=== PATIENT | male | born 1970 | race Caucasian/White ===

== ENCOUNTER 2018-10-08 12:10 | Emergency (ER) | payer BC, OTHER ==
--- NOTE | 2018-10-08 12:24 | PDOC ---
History of Present Illness - General Chief Complaint: Respiratory Stated Complaint: fever,chills,cough History Source: Patient, Family Exam Limitations: No Limitations - History of Present Illness Initial Comments: 10/08/18 12:39 This is a 48 year old male with a history of depression, who present with productive cough with yellow sputum, fevers, chills, weakness, malaise for the past week. He was seen at the urgent care, given azithromycin, he is on day 4. States his symptoms are not improving. At urgent care, white count was 5, as per , vitals stable. Patient denies travel, sick contacts, n, v, d, aspiration, abdominal pain or urinary complaints. Has had to call off work due to illness. PMHx: depression, mood disorder?, on lithium at home and seroquel PSHx: one Social hx: lives with , works as [employer] [place]?, Past History - Past Medical History Allergies/Adverse Reactions: Allergies Allergy/AdvReac Type Severity Reaction Status Date / Time No Known Allergies Allergy Verified 10/08/18 12:12 Home Medications: Ambulatory Orders Lamotrigine [Lamictal] 50 mg PO DAILY 02/25/15 [place] Carbonate [Eskalith -] 1,350 mg PO DAILY 02/25/15 Sertraline HCl [Zoloft] 100 mg PO BID 02/25/15 Psychiatric Problems: Yes (OCD, DEPRESSION, BIPOLAR) - Suicide/Smoking/Psychosocial Hx Smoking History: Never smoked Hx Alcohol Use: Yes (RED WINE OCCASSIONALLY) Drug/Substance Use Hx: No Substance Use Type: None Hx Substance Use Treatment: No Review of Systems - Review of Systems Able to Perform ROS?: Yes Is the patient limited Spanish proficient: No Constitutional: Yes: Malaise, Night Sweats, Weakness. No: Chills, Diaphoresis, Fever HEENTM: No: Eye Pain, Blurred Vision, Tearing, Double Vision Respiratory: No: Cough, Shortness of Breath, Wheezing Cardiac (ROS): No: Chest Pain, Edema, Irregular Heart Rate ABD/GI: Yes: Poor Appetite, Poor Fluid Intake. No: Abdominal Distended, Nausea , Vomiting, Abdominal cramping : No: Burning, Dysuria Musculoskeletal: No: Back Pain, Joint Pain, Muscle Weakness Integumentary: No: Dryness, Erythema, Flushing Neurological: No: Headache, Numbness, Paresthesia Endocrine: No: Unexplained Weight Gain *Physical Exam - Physical Exam General Appearance: Yes: Appropriately Dressed HEENT: positive: Normal ENT Inspection, Normal Voice, Pharynx Normal, Nasal Congestion. negative: Rhinorrhea, Sinus Tenderness, TM Erythema Neck: negative: Lymphadenopathy (L) Respiratory/Chest: positive: Decreased Breath Sounds, Crackles (bilateral crackles at bases) Cardiovascular: positive: Regular Rhythm, Regular Rate, S1, S2 Gastrointestinal/Abdominal: positive: Normal Bowel Sounds. negative: Tender Lymphatic: negative: Adenopathy, Tenderness Musculoskeletal: positive: Normal Inspection Extremity: positive: Normal Range of Motion Neurologic: positive: Fully Oriented, Normal Mood/Affect ED Treatment Course - LABORATORY CBC & Chemistry Diagram: 10/08/18 14:45 10/08/18 14:50 Medical Decision Making - Medical Decision Making 10/08/18 14:22 This is a 48 year old male with who presents with cough, fever, chills, weakness , malaise for the past week , on day 4 of azithromycin. Will work up with ancillary studies to r/o pna. CXR with bilateral infiltrates R>L. RML consolidation. #PNA: -will work up for sepsis secondary to PNA -cbc, bmp, lactic acid, blood culture, urina for pNA antigens -pending labs; dannie goyal 10/08/18 15:28 -white count wnl -will d/c home with instructions to continue azithromycin for the full course -add robitussin -dc home with instructions to stay hydrated; rest, supportive care *DC/Admit/Observation/Transfer Diagnosis at time of Disposition: Pneumonia Qualifiers: Pneumonia type: due to unspecified organism - Discharge Dispostion Condition at time of disposition: Stable Decision to Admit order: No - Referrals - Patient Instructions Printed Discharge Instructions: DI for Pneumonia -- Adult Additional Instructions: Mr. Medina, you have been diagnosed with pneumonia, continue to take your prescribed azithromycin for full course. If you experience any worsening of symptoms, including continued high fevers, shortness of breath, chest pain, please return to the emergency room. Please follow up with your primary care physician. - Post Discharge Activity
[2018-10-08 12:25] VITALS: BP 119/80; PULSE 73; TEMP 99.1; BMI 23.6
--- NOTE | 2018-10-08 12:27 | PDOC ---
Attending Attestation - Resident Resident Name: Silvia Gudino - ED Attending Attestation I have performed the following: I have examined & evaluated the patient, The case was reviewed & discussed with the resident, I agree w/resident's findings & plan, Exceptions are as noted - HPI HPI: 10/08/18 16:36 Fever and cough beginning approximately 2 weeks ago. Prescribed Tamiflu and azithromycin, therapy now continuing on day 4. Fever has resolved, but productive cough continues. No shortness of breath or chest pain. - Physicial Exam PE: 10/08/18 16:37 Physical exam: Afebrile. Vital signs stable HEENT clear Neck supple without bruit mass or nodes Chest clear to P&A bilaterally, no wheezes rales or rhonchi appreciated. Full breath sounds CV without murmur rub or gallop Abdomen benign Skin clear, no rash, adequate turgor and wet mucous membranes Extremities no CCE - Medical Decision Making 10/08/18 16:37 Assessment: Chest x-ray today reveals a right middle lobe infiltrate. White blood count normal. No significant lab abnormalities. Oxygen saturation remains in the 94-98 range on room air. Plan: Continue treatment for community-acquired pneumonia. Finish Tamiflu and Zithromax. Close follow-up with reevaluation immediately if there is high fever , shortness of breath, chest pain, or any other breathing difficulties. Home from work, rest, and observation by family. 10/08/18 16:39
[2018-10-08] MEDS ORDERED: guaiFENesin/D-METHORPHAN HB 10 ML UNIT-DOSE CUPS PO ONE (14:05)
[2018-10-08] MEDS ORDERED: guaiFENesin/D-METHORPHAN HB 10 ML UNIT-DOSE CUPS ONE (14:21)
[2018-10-08 15:09] LABS: BASO % 0.5 % (0-2.0); EOS % 3.3 % (0-4.5); HEMATOCRIT 36.2 % (35.4-49); HEMOGLOBIN 12.5 GM/dl (11.7-16.9); LYMPH % 11.3 % (8-40); MCH 30.7 pg (25.7-33.7); MCHC 34.5 g/dl (32.0-35.9); MEAN CELL VOLUME 88.9 fl (80-96); MEAN PLT VOLUME 7.5 fl (7.5-11.1); MONO % 7.3 % (3.8-10.2); NEUT % 77.6 % (42.8-82.8); PLATELET COUNT 435 K/MM3 (134-434); RBC 4.07 M/mm3 (4.00-5.60); RDW 11.6 % (11.9-15.9); WHITE BLOOD COUNT 5.8 K/mm3 (4.0-10.8)
[2018-10-08 15:15] LABS: BLOOD UREA NITROGEN 16 mg/dl (7-18); CREATININE 0.8 mg/dl (0.6-1.3); GLUCOSE,RANDOM 107 mg/dl (74-106)
[2018-10-08 15:16] LABS: ANION GAP 5 MMOL/L (8-16); CALCIUM 9.2 mg/dl (8.4-10.2); CHLORIDE 100 mmol/L (98-107); CO2 25 mmol/L (22-28); SODIUM 130 mmol/L (136-145)
[2018-10-08 16:39] LABS: POTASSIUM 4.2 mmol/L (3.5-5.1)
== END 2018-10-08 15:45 | disposition home or self-care (01) ==
LOC: FER 12:10
DX: J18.9 Pneumonia, unspecified organism (principal); F32.9 Major depressive disorder, single episode, unspecified
CPT/HCPCS: 36415; 71046-TC-FY; 80048; 83605; 85025; 87040; 87899; 99282-25